=== PATIENT | female | born 1945 | race Caucasian/White ===

== ENCOUNTER → 2017-06-21 | Outpatient (CLI) | payer MEDICARE ==
[~2017-06-21] MED LIST: CITA-141 PO; DIA5 PO; HYDR-2966 PO; LYSI500T32 PO; MEC25 PO; PRAV20TA66 PO; SULF-198 PO; ZOST19404 SQ; [UNRECOGNIZED DRUG - REMARK]
== END ==
LOC: LAB 10:36
PROVIDERS: ATTEND Nurse Practitioner Family
DX: E03.9 Hypothyroidism, unspecified (principal); E11.9 Type 2 diabetes mellitus without complications
CPT/HCPCS: 36415; 83036; 84443

== ENCOUNTER 2017-11-24 09:59 | Emergency (ER) | payer MEDICARE ==
--- NOTE | 2017-11-24 11:19 | ER Report ---
History and Physical Time Seen By MD: 11:10 Hx. of Stated Complaint: PT FELL ON STAIRS YESTERDAY AND INJURED HER LEFT ANKLE. HPI/ROS CHIEF COMPLAINT: Left ankle injury HISTORY OF PRESENT ILLNESS: Patient is a 72-year-old female who presents the ED with complaint of a left ankle injury that occurred yesterday. She states that she was bringing a cart down the stairs and missed the last 2 steps and twisted her left ankle. She did walk on this but was limping afterwards. She had noted some swelling more on the lateral aspect of her ankle. She has not taken any medication for this but has been applying some ice. REVIEW OF SYSTEMS: Constitutional: No fever, no chills. Cardiovascular: No chest pain, no palpitations. Respiratory: No cough, no shortness of breath. Musculoskeletal: See history of present illness. Skin: No rashes. Neurological: No headache. Allergies: Coded Allergies: Penicillins (Verified Allergy, Intermediate, RASH, 11/24/17) ALSO DIARRHEA codeine (Verified Allergy, Intermediate, LOSS OF MUSCLE CONTROL, 11/24/17) latex (Unverified Allergy, Unknown, 11/24/17) Uncoded Allergies: BEE STINGS (Allergy, Severe, ANAPHYLAXIS, 09/19/06) Home Meds Active Scripts Hydrochlorothiazide (HYDROCHLOROTHIAZIDE) 25 Mg Tablet, 1 TAB PO QAM, #90 TAB 4 Refills Prov:AXEL CRUZ APRNP-C 11/06/14 Reported Medications Lysine (L-LYSINE) 500 Mg Tablet, 500 MG PO BID 01/13/14 Discontinued Scripts Zoster Vaccine Live/Pf (ZOSTAVAX VIAL) 19,400 Unit Vial, [address] UNIT SQ ONCE, #1 VIAL 0 Refills Prov:AXEL CRUZ APRN [employer]-C 11/06/14 Reviewed Nurses Notes: Yes Old Medical Records Reviewed: Yes Smoking Status: Never Smoker Constitutional Vital Sign - Last 24 Hours 11/24/17 10:30 Temp 98.1 Pulse 74 Resp 14 B/P (MAP) 143/82 Pulse Ox 93 O2 Delivery Room Air Physical Exam General Appearance: The patient is alert, has no immediate need for airway protection and no signs of toxicity. Patient appears to be in no acute distress.ist.] Respiratory: There are no retractions, lungs are clear to auscultation. Cardiovascular: Regular rate and rhythm. Skin: Warm and dry, no rashes. Musculoskeletal: Neck is supple non tender. There is left lateral ankle pain with palpation. There is some mild swelling in this area. No ecchymosis identified. Limited range of motion due to the pain. PT and DP pulses are 2+ with normal capillary refill. Normal sensation. DIFFERENTIAL DIAGNOSIS: After history and physical exam differential diagnosis was considered for left ankle injury including fracture, sprain, contusion. Medical Decision Making EKG/Imaging Imaging Left Ankle Xrays: IMPRESSION: Normal views of the left ankle. Report Dictated By: Brad Earl MD at 11/24/2017 11:38 AM Report E-Signed By: Brad Earl MD at 11/24/2017 11:39 AM ED Course/Re-evaluation ED Course Will obtain left ankle x-rays. 11/24/2017 11:54:16 am - discussed imaging results with patient. There appears to be no fracture her left ankle. She likely does have a left ankle sprain. We' ll place her in a left ankle air splint and crutches. Follow-up with orthopedics or primary care provider in 3-4 days. Decision to Disposition Date: Nov 24, 2017 Decision to Disposition Time: 11:54 Depart Departure Latest Vital Signs Vital Signs Date Time Temp Pulse Resp B/P (MAP) Pulse Ox O2 Delivery O2 Flow Rate FiO2 11/24/17 10:30 98.1 74 14 143/82 93 Room Air Impression: Primary Impression: Left ankle sprain Condition: Improved Disposition: HOME OR SELF-CARE Referrals: THOM ALVARADO (PCP) [facility] Patient Instructions: Ankle Sprain (ED) Additional Instructions: Rest, ice, elevate. Use crutches and ankle splint as needed. Follow-up with orthopedics or primary care provider in 3-4 days. May take Tylenol for pain relief. If having any worsening or concerning symptoms may return to the emergency department. Problem Qualifiers Primary Impression: Left ankle sprain Encounter type: initial encounter Involved ligament of ankle: unspecified ligament Qualified Codes: S93.402A - Sprain of unspecified ligament of left ankle, initial encounter LOUISE STOREY PA-C Nov 24, 2017 11:19
--- NOTE | 2017-11-24 11:42 | RADIOLOGY IMAGING REPORT ---
FACILITY: [facility] PATIENT NAME: Norma Hartley : 1945 MR: [id number] V: [id number] EXAM DATE: ORDERING PHYSICIAN: HAMMAD MADRIGAL TECHNOLOGIST: Location: [facility] Patient: Norma Hartley : 1945 Visit/Account:[id number] Date of Sevice: 11/24/2017 ANKLE 3 VIEW MIN LEFT COMPARISONS: None. ADDITIONAL PERTINENT HISTORY: Injury to left ankle with fall yesterday. FINDINGS: Osseous structures: Negative. Joint spaces: Negative. Surrounding soft tissues: Negative. IMPRESSION: Normal views of the left ankle. Report Dictated By: Brad Earl MD at 11/24/2017 11:38 AM Report E-Signed By: Brad Earl MD at 11/24/2017 11:39 AM WSN:[id number]
[2017-11-24 12:15] VITALS: BP 195/80
== END 2017-11-24 12:12 | disposition home or self-care (01) ==
LOC: ER 10:40
DX: S93.402A Sprain of unspecified ligament of left ankle, initial encounter (principal); W10.9XXA Fall (on) (from) unspecified stairs and steps, initial encounter
CPT/HCPCS: 99283; L1930

== ENCOUNTER → 2017-11-30 | Outpatient (CLI) | payer MEDICARE ==
[2017-11-30 14:22] LABS: LDL CHOLESTEROL 103 mg/dl
== END ==
LOC: LAB 13:34
PROVIDERS: ATTEND Nurse Practitioner Family
DX: E03.9 Hypothyroidism, unspecified (principal); E78.5 Hyperlipidemia, unspecified; I10 Essential (primary) hypertension; E66.9 Obesity, unspecified; Z68.30 Body mass index [BMI] 30.0-30.9, adult
CPT/HCPCS: 36415; 82040; 82247; 82310; 82374; 82435; 82465; 82565; 82947; 83718; 84075; 84132; 84155; 84295; 84443; 84450; 84460; 84478; 84520

== ENCOUNTER → 2018-03-26 | Outpatient (CLI) | payer MEDICARE | LOC: LAB 12:54 | PROVIDERS: ATTEND Nurse Practitioner Family | DX: E03.9 Hypothyroidism, unspecified (principal) | CPT/HCPCS: 36415; 84443 ==

== ENCOUNTER → 2018-09-30 | Outpatient (CLI) | payer MEDICARE ==
--- NOTE | 2018-09-30 15:11 | RADIOLOGY IMAGING REPORT ---
[place] [facility] [place] Norma Hartley : 1945 MR: [id number] V: [id number] EXAM DATE: ORDERING PHYSICIAN: THOM ALVARADO TECHNOLOGIST: [place] [facility] [place] Patient: Norma Hartley : 1945 Visit/Account:[id number] Date of Sevice: 09/30/2018 CAROTID HISTORY: Memory loss, syncope and bilateral bruit COMPARISON: None. FINDINGS: Grayscale, duplex and color Doppler interrogation of the extracranial carotid and vertebral arteries was performed bilateral. On the right, peak systolic velocities within the common and internal carotid arteries are 114 and 13 6 cm/sec respectively. No significant plaque formation is identified. Doppler waveforms are within normal limits.. Antegrade flow within the common, internal and external carotid arteries as well as vertebral artery. ICA/CCA ratio 1.2. On the left, peak systolic velocities within the common and internal carotid arteries are 133 and 121 cm/sec respectively. No significant plaque formation is identified. Doppler waveforms are within n ormal limits.. Antegrade flow within the common, internal and external carotid arteries as well as v ertebral artery. ICA/CCA ratio 1.1. IMPRESSION: Carotid ultrasound is within normal limits Velocity criteria are extrapolated from diameter data as defined by the Society of Radiologists [place] [facility] Consensus Conference Radiology 2003; 229;340-346 Report Dictated By: Lele Traylor at 09/30/2018 2:50 PM Report E-Signed By: Lele Traylor at 09/30/2018 3:07 PM WSN:[id number]
[2018-09-30 16:32] LABS: LDL CHOLESTEROL 136 mg/dl
== END ==
LOC: US 00:54
PROVIDERS: ATTEND Nurse Practitioner Family
DX: I65.23 Occlusion and stenosis of bilateral carotid arteries (principal); I10 Essential (primary) hypertension; E03.9 Hypothyroidism, unspecified; E78.5 Hyperlipidemia, unspecified
CPT/HCPCS: 36415; 82040; 82247; 82310; 82374; 82435; 82465; 82565; 82947; 83718; 84075; 84132; 84155; 84295; 84443; 84450; 84460; 84478; 84520; 93880